=== PATIENT | female | born 1945 | race Caucasian/White ===

== ENCOUNTER 2016-09-17 15:39 | Emergency (ER) | payer MEDICARE, OTHER ==
--- NOTE | 2016-09-17 16:06 | ERPHSYRPT ---
- History of Present Illness Time Seen by Provider: 09/17/16 15:54 Historian: patient Exam Limitations: no limitations Patient Subjective Stated Complaint: mid abd pain for 1 week Triage Nursing Assessment: states has had a 'bulge' to her mid abd for one week. pain with palpation. states she has been moving wood for days and leaved against the cabinet and caused more pain to abd. normal bm yesterday. bs present. poor appetite lately Physician History: C/O abdominal pain, intermittent for past 1 month. Noticed increased pain past 2 days, upper middle right bulge to area. States pain is dull, which became more sever with bumping into sink. States nauseated and vomited 3 days ago. No fever, chills, urinary or diarrhea symptoms. No chest pain, SOB, dizziness, weakness or palpitations. Had large umbilical hernia that required surgery to repair. Timing/Duration: week(s) (4), intermittent Activities at Onset: other (Increase lifting/straining working on house) Abdominal Pain Onset Location: periumbilical Pain Radiation: no radiation Severity of Pain-Max: moderate Modifying Factors: Improves With: eating (worsen) Associated Symptoms: loss of appetite, nausea, vomiting, weakness, No back, No chest pain, No fatigue, No neck pain, No shortness of breath, No syncope Previous symptoms: same symptoms as today Allergies/Adverse Reactions: cephalexin [From Keflex] Allergy (Verified 09/17/16 15:56) levofloxacin [From Levaquin] Allergy (Verified 09/17/16 15:56) prednisone Allergy (Verified 09/17/16 15:56) Home Medications: Amlodipine Besylate 10 mg [Norvasc 10 MG] 10 mg PO DAILY 09/17/16 [History] Aspirin 81 mg PO DAILY 09/17/16 [History] Benzonatate 200 mg PO BID 09/17/16 [History] Cyclobenzaprine HCl 5 mg PO DAILY 09/17/16 [History] Diclofenac Sodium 75 mg PO BID 09/17/16 [History] HydrALAzine HCL 25 MG TAB [Apresoline 25 MG TABLET] 25 mg PO BID 09/17/16 [History] Levothyroxine Sodium [Synthroid] 125 mcg PO DAILY 09/17/16 [History] Lisinopril/Hydrochlorothiazide [Lisinopril-Hctz 20-12.5 mg Tab] 1 each PO DAILY 09/17/16 [History] Metoprolol Tartrate 25 mg [Lopressor 25MG Tab] 25 mg PO DAILY 09/17/16 [ History] Omeprazole 20 MG [Prilosec 20 mg] 20 mg PO TID 09/17/16 [History] Simvastatin 40 mg [Zocor 40 mg] 40 mg PO DAILY 09/17/16 [History] Hx Tetanus, Diphtheria Vaccination/Date Given: Yes Hx Influenza Vaccination/Date Given: No Hx Pneumococcal Vaccination/Date Given: No Immunizations Up to Date: Yes - Review of Systems Constitutional: No Fever, No Chills Eyes: No Symptoms Ears, Nose, & Throat: No Symptoms Respiratory: No Cough, No Dyspnea Cardiac: No Chest Pain, No Edema, No Syncope Abdominal/Gastrointestinal: Abdominal Pain, Nausea, Vomiting, No Diarrhea, No Constipation, No Hematemesis, No Melena Genitourinary Symptoms: No Symptoms, No Dysuria Musculoskeletal: No Symptoms, No Back Pain, No Neck Pain Skin: No Rash Neurological: No Dizziness, No Focal Weakness, No Sensory Changes Psychological: No Symptoms Endocrine: No Symptoms All Other Systems: Reviewed and Negative - Past Medical History Pertinent Past Medical History: Yes Cardiac History: High Cholesterol, Hypertension Endocrine Medical History: Hypothyroidism Musculoskeletal History: Osteoporosis GI Medical History: GERD - Past Surgical History Past Surgical History: Yes Gastrointestinal: Appendectomy, Cholecystectomy Musculoskeletal: Orthopedic Surgery Female Surgical History: Hysterectomy - Social History Smoking Status: Current every day smoker Exposure to second hand smoke: Yes Drug Use: none Patient Lives Alone: No - Nursing Vital Signs Nursing Vital Signs: Initial Vital Signs Temperature 97.7 F Temperature Source Oral Pulse Rate 134 Respiratory Rate 20 Blood Pressure 122/87 Pain Intensity 5 - Physical Exam General Appearance: no apparent distress, alert Eye Exam: PERRL/EOMI, eyes nml inspection Ears, Nose, Throat Exam: normal ENT inspection, pharynx normal, moist mucous membranes Neck Exam: normal inspection, non-tender, supple, full range of motion Respiratory Exam: normal breath sounds, lungs clear, No respiratory distress Cardiovascular Exam: regular rate/rhythm, normal heart sounds Gastrointestinal/Abdomen Exam: soft, tenderness (R upper medial area), mass (R upper medial area), hernia, No distention, No guarding, No pulsatile mass, No rebound, No hepatomegaly, No organomegaly, No splenomegaly Back Exam: normal inspection, normal range of motion, No CVA tenderness, No vertebral tenderness Extremity Exam: normal inspection, normal range of motion, pelvis stable Neurologic Exam: alert, oriented x 3, cooperative, normal mood/affect, nml cerebellar function, sensation nml, No motor deficits Skin Exam: normal color, warm, dry SpO2 Interpretation: normal SpO2: 96 Oxygen Delivery: Room Air - Course Nursing assessment & vital signs reviewed: Yes EKG Interpreted by Me: RATE (153), A-fib, Left [place] Deviation, Non-specific ST Changes Rhythm Strip: Rate (120's but varies), Atrial Fibrillation Ordered Tests: Active Orders 24 hr Category Date Time Status Loss Prevention Detective STAT Care 09/17/16 17:29 Active EKG-ER Only STAT Care 09/17/16 16:15 Active IV Insertion STAT Care 09/17/16 16:15 Active NPO (ED) STAT Care 09/17/16 16:15 Active ABDOMEN AND PELVIS W CONTRAST [CT] Stat Exams 09/17/16 16:18 Taken AMYLASE Stat Lab 09/17/16 16:30 Completed CBC W DIFF Stat Lab 09/17/16 16:30 Completed CMP Stat Lab 09/17/16 16:30 Completed LIPASE Stat Lab 09/17/16 16:30 Completed T4 Stat Lab 09/17/16 16:35 Completed TROPONIN Stat Lab 09/17/16 16:35 Completed TSH, 3RD Generation Stat Lab 09/17/16 16:35 Completed UA W/ MICROSCOPIC Stat Lab 09/17/16 16:30 Completed Medication Summary Generic Name Dose Route Start Last Admin Trade Name Freq PRN Reason Stop Dose Admin Sodium Chloride 700 mls @ 100 mls/hr 09/17/16 17:00 09/17/16 17:04 Sodium Chloride 0.9% 1000 Ml IV 10/17/16 16:59 100 mls/hr .Q7H ELGIN Administration Diltiazem HCl 100 mls @ 5 mls/hr 09/17/16 19:00 09/17/16 18:54 Cardizem Drip 100 Mg/100 Ml D5w IV 10/17/16 18:59 5 mls/hr .Q20H ELGIN Administration Protocol 5 MG/HR Discontinued Medications Generic Name Dose Route Start Last Admin Trade Name Freq PRN Reason Stop Dose Admin Sodium Chloride 300 mls @ 999 mls/hr 09/17/16 16:57 09/17/16 17:04 Sodium Chloride 0.9% 1000 Ml IV 09/17/16 17:15 999 mls/hr .Q19M STA Administration Sodium Chloride Confirm 09/17/16 17:03 Sodium Chloride 0.9% 1000 Ml Administered 09/17/16 17:04 Dose 1,000 mls @ ud .ROUTE .STK-MED ONE Diltiazem HCl Confirm 09/17/16 18:52 Cardizem Drip 100 Mg/100 Ml D5w Administered 09/17/16 18:53 Dose 100 mls @ ud IV .STK-MED ONE Metoprolol Tartrate 5 mg 09/17/16 17:58 09/17/16 18:02 Lopressor 5 Mg/5 Ml Injection IV 09/17/16 17:59 5 mg STAT ONE Administration Metoprolol Tartrate Confirm 09/17/16 17:59 Lopressor 5 Mg/5 Ml Injection Administered 09/17/16 18:00 Dose 5 mg IV .STK-MED ONE Ondansetron HCl 4 mg 09/17/16 16:15 09/17/16 16:30 Zofran 4 Mg/2 Ml Vial IV 09/17/16 16:16 4 mg STAT ONE Administration Ondansetron HCl Confirm 09/17/16 16:30 Zofran 4 Mg/2 Ml Vial Administered 09/17/16 16:31 Dose 4 mg .ROUTE .STK-MED ONE Lab/Rad Data: Laboratory Result Diagrams 09/17/16 16:30 09/17/16 16:30 Laboratory Results 09/17/16 09/17/16 09/17/16 Range/Units 16:35 16:35 16:30 WBC (4.0-10.5) K/mm3 RBC (4.1-5.4) M/mm3 Hgb (12.0-16.0) gm/dl Hct (35-47) % MCV (78-100) fl MCH (26-32) pg MCHC (32-36) g/dl RDW (11.5-14.0) % Plt Count (150-450) K/mm3 MPV (6-9.5) fl Gran % (36.0-66.0) % Lymphocytes % (24.0-44.0) % Monocytes % (0.0-12.0) % Eosinophils % (0.00-5.0) % Basophils % (0.0-0.4) % Basophils # (0-0.4) Sodium (136-145) mEq/L Potassium (3.5-5.1) mEq/L Chloride (98-107) mEq/L Carbon Dioxide (21-32) mEq/L Anion Gap (5-15) MEQ/L BUN (9-20) mg/dL Creatinine (0.55-1.30) mg/dl Estimated GFR ML/MIN Glucose (70-110) MG/DL Calcium (8.5-10.1) mg/dL Total Bilirubin (0.2-1.0) mg/dL AST (15-37) U/L ALT (12-78) U/L Alkaline Phosphatase (46-116) U/L Troponin I < 0.017 (0.000-0.056) ng/ml Serum Total Protein (6.4-8.2) gm/dL Albumin (3.4-5.0) g/dL Amylase (25-115) U/L Lipase (73-393) U/L Thyroxine (T4) 8.9 (4.7-13.3) UG/DL TSH 3rd Generation 3.377 (0.358-3.740) mIU/L Ur Collection Type CLEAN CATCH Urine Color YELLOW (YELLOW) Urine Appearance SLIGHTLY CLOUDY (CLEAR) Urine pH 5.5 (5-6) Ur Specific [place] 1.025 (1.005-1.025) Urine Protein 100 (Negative) Urine Glucose (UA) NEGATIVE (NEGATIVE) mg/dL Urine Ketones NEGATIVE (NEGATIVE) Urine Nitrite NEGATIVE (NEGATIVE) Urine Bilirubin SMALL (NEGATIVE) Urine Urobilinogen 0.2 (0-1) mg/dL Urine WBC (Auto) NEGATIVE (NEGATIVE) Urine RBC (Auto) TRACE-INTACT (0-5) Demian/ul Urine Microscopic RBC 2-5 (0-2) /HPF Urine Microscopic WBC 2-5 (0-5) /HPF Ur Epithelial Cells MODERATE (FEW) /HPF Urine Bacteria MODERATE (NEGATIVE) /HPF Hyaline Casts 0-2 (0-2) /LPF Urine Mucus SLIGHT (NEGATIVE) /HPF Specimen Received 09/17/16 9675 09/17/16 09/17/16 Range/Units 16:30 16:30 WBC 6.2 (4.0-10.5) K/mm3 RBC 3.70 L (4.1-5.4) M/mm3 Hgb 11.5 L (12.0-16.0) gm/dl Hct 35.3 (35-47) % MCV 95.4 (78-100) fl MCH 31.0 (26-32) pg MCHC 32.6 (32-36) g/dl RDW 14.9 H (11.5-14.0) % Plt Count 212 (150-450) K/mm3 MPV 11.8 H (6-9.5) fl Gran % 61.5 (36.0-66.0) % Lymphocytes % 29.3 (24.0-44.0) % Monocytes % 7.6 (0.0-12.0) % Eosinophils % 1.1 (0.00-5.0) % Basophils % 0.5 (0.0-0.4) % Basophils # 0.03 (0-0.4) Sodium 142 (136-145) mEq/L Potassium 3.5 (3.5-5.1) mEq/L Chloride 104 (98-107) mEq/L Carbon Dioxide 27.0 (21-32) mEq/L Anion Gap 14.1 (5-15) MEQ/L BUN 19 (9-20) mg/dL Creatinine 0.94 (0.55-1.30) mg/dl Estimated GFR > 60 ML/MIN Glucose 100 (70-110) MG/DL Calcium 8.1 L (8.5-10.1) mg/dL Total Bilirubin 1.1 H (0.2-1.0) mg/dL AST 42 H (15-37) U/L ALT 106 H (12-78) U/L Alkaline Phosphatase 134 H (46-116) U/L Troponin I (0.000-0.056) ng/ml Serum Total Protein 6.6 (6.4-8.2) gm/dL Albumin 3.3 L (3.4-5.0) g/dL Amylase 45 (25-115) U/L Lipase 203 (73-393) U/L Thyroxine (T4) (4.7-13.3) UG/DL TSH 3rd Generation (0.358-3.740) mIU/L Ur Collection Type Urine Color (YELLOW) Urine Appearance (CLEAR) Urine pH (5-6) Ur Specific [place] (1.005-1.025) Urine Protein (Negative) Urine Glucose (UA) (NEGATIVE) mg/dL Urine Ketones (NEGATIVE) Urine Nitrite (NEGATIVE) Urine Bilirubin (NEGATIVE) Urine Urobilinogen (0-1) mg/dL Urine WBC (Auto) (NEGATIVE) Urine RBC (Auto) (0-5) Demian/ul Urine Microscopic RBC (0-2) /HPF Urine Microscopic WBC (0-5) /HPF Ur Epithelial Cells (FEW) /HPF Urine Bacteria (NEGATIVE) /HPF Hyaline Casts (0-2) /LPF Urine Mucus (NEGATIVE) /HPF Specimen Received - Progress Progress: improved Progress Note: 09/17/16 18:43 patient was given metoprolol for A. fib. This did seem to improve her rat as it was decrease to 100s to 130s, along with improvement of her blood pressure. Repeat EKG showed atrial fib and a heart rate of 120, there is left axis deviation and nonspecific ST-T wave changes. Dr. Andersen, her relay mechanic,was notified and agrees with admission. We'll start Cardizem drip 5 mg/hour and increased to 10 mg/hr as tolerated. We'll also start Lovenox 1 mg/kg if patient does not have incarcerated hernia. Dr. Venegas, her primary care doctor, was also notified in law also aid in her care at [facility]. Her surgeon is also located at [facility] in [place]. Venegas will direct her care with her surgeon. 09/17/16 18:53 09/17/16 19:16 patient was notified to Dr. Sahu, who is the oncoming ED physician. Care was discussed in regards to results of abdominal CT. If patient has incarcerated hernia, we will hold off on anticoagulatio. If patient does not have an incarcerated hernia, we'll give patient Lovenox 1 mg/kg subcutaneous. Dr. Sahu understanding plan and will assume care of patient Counseled pt/family regarding: lab results, diagnosis, rad results - Departure Time of Disposition: 18:48 Departure Disposition: Transfer ([facility]) Clinical Impression: New onset atrial fibrillation, Abdominal pain Condition: Stable Critical Care Time: No Referrals: GABBY VENEGAS [Primary Care Provider] -
[2016-09-17] MEDS ORDERED: Zofran 4 MG/2 ML VIAL IV ONE (16:15)
[2016-09-17] MEDS ORDERED: Zofran 4 MG/2 ML VIAL ONE (16:30)
[2016-09-17 16:51] LABS: BASOPHIL % 0.5 % (0.0-0.4); Eosinophil % 1.1 % (0.00-5.0); Granulocytes % 61.5 % (36.0-66.0); Lymphocytes % 29.3 % (24.0-44.0); Mean Cell Volume 95.4 fl (78-100); Mean Platelet Volume 11.8 fl (6-9.5); Monocytes % 7.6 % (0.0-12.0); Platelet Count 212 K/mm3 (150-450); Red Cell Distribution Width 14.9 % (11.5-14.0); White Blood Count 6.2 K/mm3 (4.0-10.5)
[2016-09-17] MEDS ORDERED: SODIUM CHLORIDE 0.9% IV STA (16:57)
[2016-09-17 16:59] LABS: ALBUMIN 3.3 g/dL (3.4-5.0); ALKALINE PHOSPHATASE 134 U/L (46-116); ANION GAP 14.1 MEQ/L (5-15); BILIRUBIN,TOTAL 1.1 mg/dL (0.2-1.0); BLOOD UREA NITROGEN 19 mg/dL (9-20); CHLORIDE 104 mEq/L (98-107); Glucose 100 MG/DL (70-110); LIPASE 203 U/L (73-393); Potassium 3.5 mEq/L (3.5-5.1); SGOT/AST 42 U/L (15-37); SGPT/ALT 106 U/L (12-78); SODIUM 142 mEq/L (136-145); Total Protein 6.6 gm/dL (6.4-8.2)
[2016-09-17] MEDS ORDERED: Sodium Chloride 0.9% 1000 ML 1,000 ML ONE (17:03)
[2016-09-17 17:20] LABS: Collection Type CLEAN CATCH
[2016-09-17 17:21] LABS: Bacteria MODERATE /HPF (NEGATIVE); COMPLETE URINE MICROSCOPIC? YES; Epithelial Cells MODERATE /HPF (FEW); Hyaline Casts 0-2 /LPF (0-2); Mucus SLIGHT /HPF (NEGATIVE); Ph 5.5 (5-6)
[2016-09-17] MEDS ORDERED: LOPRESSOR 5 MG/5 ML INJECTION IV ONE ×2 (17:58→17:59)
[2016-09-17] MEDS ORDERED: CARDIZEM DRIP 100 MG/100 ML D5W 100 ML IV ONE (18:52)
[2016-09-17] MEDS ORDERED: CARDIZEM DRIP 100 MG/100 ML D5W 100 ML IV SCH (19:00)
[2016-09-17] MEDS ORDERED: ENOXAPARIN SODIUM SQ ONE ×2 (19:45→20:03)
[2016-09-17 20:59] VITALS: PULSE 116; O2SAT 97
[2016-09-17 21:08] VITALS: BP 116/70
--- NOTE | 2016-09-18 09:14 | XRAY ---
Indication: Abdominal pain. Possible incarcerated hernia. Multiple contiguous axial images obtained through the abdomen and pelvis using 80 cc Isovue 370 contrast and enteric contrast. Comparison: None Lung bases demonstrates bibasilar fibrosis/scarring and small right base effusion. The heart is enlarged. Small hiatal hernia. Previous midline ventral hernia repair surgery. Tiny fatty right epigastric ventral hernia. No other ventral or inguinal hernias. Contrasted stomach and bowel loops appear nonobstructed. Normal appendix. Tiny nonspecific pelvic free fluid. No walled off fluid collection or free air. Bilateral renal cysts, largest left kidney measuring 2.6 cm. Previous cholecystectomy and hysterectomy. Remaining liver, pancreas, spleen, adrenal glands, kidneys, ureters, and urinary bladder appear unremarkable. Mild aortoiliac calcifications. No AAA or pathologic retroperitoneal lymphadenopathy. Osseous structures intact with moderate degenerative changes throughout the spine and previous L4-L5 fusion surgery with bilateral posterior spinal hardware producing beam artifact. Impression: 1. Tiny right epigastric fatty ventral hernia. 2. Tiny nonspecific pelvic free fluid. 3. Bilateral renal cysts. 4. Nonspecific small right lung base effusion, cardiomegaly, and small hiatal hernia. Comment: Preliminary interpretation was made by C. No discrepancy. CTDI is 23.67
[2016-09-18 20:41] LABS: T3, FREE 2.32 pg/mL (2.00-4.00)
== END 2016-09-17 21:16 | disposition short-term general hospital (02) ==
LOC: ED 15:39
DX: I48.91 Unspecified atrial fibrillation (principal); R10.11 Right upper quadrant pain; R11.2 Nausea with vomiting, unspecified; I10 Essential (primary) hypertension; E78.00 Pure hypercholesterolemia, unspecified; E03.9 Hypothyroidism, unspecified; Z79.899 Other long term (current) drug therapy
CPT/HCPCS: 36000; 36415; 74177; 80053; 81000; 82150; 83605; 83690; 84436; 84443; 84480; 84481; 84484; 85025; 93005; 93041; 96360; 96361; 96365; 96366; 96374; 99284; J1650; J2405

== ENCOUNTER 2016-12-21 14:50 | Emergency (ER) | payer MEDICARE, OTHER ==
[2016-12-21] MEDS ORDERED: Cardizem IV 50 MG/10 ML IV ONE ×2 (15:19→15:24)
[2016-12-21] MEDS ORDERED: CARDIZEM DRIP 100 MG/100 ML D5W 100 ML IV PRN (15:21)
[2016-12-21] MEDS ORDERED: CARDIZEM DRIP 100 MG/100 ML D5W 100 ML IV ONE (15:24)
[2016-12-21] MEDS ORDERED: Sodium Chloride 0.9% 1000 ML 1,000 ML ONE (15:25)
[2016-12-21] MEDS ORDERED: Sodium Chloride 0.9% 1000 ML 1,000 ML IV SCH (15:30)
--- NOTE | 2016-12-21 15:30 | ERPHSYRPT ---
- History of Present Illness Time Seen by Provider: 12/21/16 15:13 Source: patient Exam Limitations: clinical condition Patient Subjective Stated Complaint: PT COMPLAINS OF SOB STATES BECAME WORSE X 4 DAYS AGO STAETS THAT SHE WAS RECENLTY DIAGNOSED X 1 MONTH AGO WITH AFIB STATES THAT DR MILLIE STARTED HER ON CARDIZEM ON November STATES THAT SINCE SHE STARTED IT SHE HAS BEEN INCREASINGLY MORE SOB AND AND DIZZY,NAUSEATED AND NOT FEELING WELL SO STATES SHE STOPPED IT X 4 DAYS AGO STATES THAT WHEN HER SOB BECAME WORSE PT STAES THAT SHE HASN'T TALKED TO MILLIE TO LET HIM KNOW THAT SHE STOPPED THE MEDS. Triage Nursing Assessment: PT ALERT WARM AND DRY LABORED BREATHING NOTED WITH ANY EXACERBATION RESP 34 TIMES A MIN HR 160 ON THE MONITOR EKG DONE AT BEDSIDE. Physician History: PATIENT WITH A HISTORY OR HYPERTENSION, RECENTLY DIAGNOSED WITH ATRIAL FIBRILLATION 3 WEEKS AGO, PLACED ONTO LOPRESSOR AND CARDIZEM. PATIENT COMPLAINS OF DYSPNEA 4 DAYS AGO AT WHICH TIME SHE STOPPED TAKING HER CARDIZEM DUE TO SHORTNESS OF BREATH AND TAPERED HER DOSE OF LOPRESSOR FROM 3 TIMES DAILY TO TWICE DAILY. DENIES DIAPHORESIS OR CHEST PAIN. Timing/Duration: day(s) Activities at Onset: rest Severity of Dyspnea-Max: moderate Severity of Dyspnea-Current: moderate Possible Cause: no prior episodes Modifying Factors: Improves With: exertion, rest Associated Symptoms: edema (IN LEGS) Allergies/Adverse Reactions: cephalexin [From Keflex] Allergy (Verified 09/17/16 15:56) levofloxacin [From Levaquin] Allergy (Verified 09/17/16 15:56) prednisone Allergy (Verified 09/17/16 15:56) Home Medications: Amlodipine Besylate 10 mg [Norvasc 10 MG] 10 mg PO DAILY 09/17/16 [History] Aspirin 81 mg PO DAILY 09/17/16 [History] Benzonatate 200 mg PO BID 09/17/16 [History] Cyclobenzaprine HCl 5 mg PO DAILY 09/17/16 [History] Diclofenac Sodium 75 mg PO BID 09/17/16 [History] HydrALAzine HCL 25 MG TAB [Apresoline 25 MG TABLET] 25 mg PO BID 09/17/16 [History] Levothyroxine Sodium [Synthroid] 125 mcg PO DAILY 09/17/16 [History] Lisinopril/Hydrochlorothiazide [Lisinopril-Hctz 20-12.5 mg Tab] 1 each PO DAILY 09/17/16 [History] Metoprolol Tartrate 25 mg [Lopressor 25MG Tab] 25 mg PO DAILY 09/17/16 [ History] Omeprazole 20 MG [Prilosec 20 mg] 20 mg PO TID 09/17/16 [History] Simvastatin 40 mg [Zocor 40 mg] 40 mg PO DAILY 09/17/16 [History] Hx Tetanus, Diphtheria Vaccination/Date Given: Yes Hx Influenza Vaccination/Date Given: Yes Hx Pneumococcal Vaccination/Date Given: No Immunizations Up to Date: Yes - Review of Systems Constitutional: No Fever, No Chills Eyes: No Symptoms Ears, Nose, & Throat: No Symptoms Respiratory: Dyspnea, Dyspnea on Exertion (GARCIA), No Cough Cardiac: No Symptoms, Edema, No Chest Pain, No Syncope Abdominal/Gastrointestinal: No Symptoms, No Abdominal Pain, No Nausea, No Vomiting, No Diarrhea Genitourinary Symptoms: No Symptoms, No Dysuria Musculoskeletal: No Symptoms, No Back Pain, No Neck Pain Skin: No Symptoms, No Rash Neurological: No Symptoms, No Dizziness, No Focal Weakness, No Sensory Changes Psychological: No Symptoms Endocrine: No Symptoms All Other Systems: Reviewed and Negative - Past Medical History Pertinent Past Medical History: Yes Cardiac History: High Cholesterol, Hypertension Endocrine Medical History: Hypothyroidism Musculoskeletal History: Osteoporosis GI Medical History: GERD - Past Surgical History Past Surgical History: Yes Gastrointestinal: Appendectomy, Cholecystectomy Musculoskeletal: Orthopedic Surgery Female Surgical History: Hysterectomy - Social History Smoking Status: Never smoker Exposure to second hand smoke: No Drug Use: none Patient Lives Alone: No - Female History Hx Last Menstrual Period: N/A - Nursing Vital Signs Nursing Vital Signs: Initial Vital Signs Temperature 98.4 F Temperature Source Oral Pulse Rate 132 Respiratory Rate 26 Blood Pressure [] 126/86 - Physical Exam General Appearance: mild distress Eye Exam: PERRL/EOMI Neck Exam: normal inspection, supple, JVD Respiratory Exam: diminished breath sounds Cardiovascular/Chest Exam: tachycardia, irregular Abdominal/Gastrointestinal Exam: soft, normal bowel sounds, other, No tenderness , No distention, No mass Extremity Exam: non-tender, normal range of motion, normal inspection, no calf tenderness, no pedal edema Peripheral Pulses Exam: carotid (R): 2+, carotid (L): 2+, femoral (R): 2+, femoral (L): 2+, dorsalis-pedis (R): 2+, dorsalis-pedis (L): 2+ Neurologic Exam: alert, oriented x 3, cooperative, supply clerk II-XII nml as tested, sensation nml, No motor deficits Skin Exam: normal color, warm, No dry SpO2 Interpretation: normal SpO2: 97 Oxygen Delivery: Nasal Cannula - Course EKG Interpreted by Me: RATE, A-fib, NORMAL AXIS - Radiology Exams Chest X-ray Interpretation: Discussed w/ radiologist (MILD TO MODERATE CARDIOMEGALY WITH MILD BILATERAL VASCULAR CONGSTION) Ordered Tests: Active Orders 24 hr Category Date Time Status Exercise Rider STAT Care 12/21/16 15:17 Active EKG-ER Only STAT Care 12/21/16 15:17 Active IV Insertion STAT Care 12/21/16 15:17 Active Oxygen-ED Only NASAL CANNULA 2 lpm Care 12/21/16 15:17 Active Pulse Oximetry (ED) STAT Care 12/21/16 15:17 Active CHEST 1 VIEW (PORTABLE) Stat Exams 12/21/16 15:17 Completed CBC W DIFF Stat Lab 12/21/16 15:39 Completed CMP Stat Lab 12/21/16 15:39 Completed MAGNESIUM Stat Lab 12/21/16 15:39 Completed NT PRO BNP Stat Lab 12/21/16 15:39 Completed PROTIME WITH INR Stat Lab 12/21/16 15:39 Completed TROPONIN Q3H Lab 12/21/16 15:39 Completed Medication Summary Discontinued Medications Generic Name Dose Route Start Last Admin Trade Name Freq PRN Reason Stop Dose Admin Diltiazem HCl 20 mg 12/21/16 15:19 12/21/16 15:31 Cardizem Iv 50 Mg/10 Ml IV 12/21/16 15:20 20 mg STAT ONE Administration Diltiazem HCl Confirm 12/21/16 15:24 Cardizem Iv 50 Mg/10 Ml Administered 12/21/16 15:25 Dose 50 mg IV .STK-MED ONE Furosemide 40 mg 12/21/16 16:33 12/21/16 16:45 Lasix 40 Mg/4 Ml IV 12/21/16 16:34 40 mg STAT ONE Administration Furosemide Confirm 12/21/16 16:41 Lasix 40 Mg/4 Ml Administered 12/21/16 16:42 Dose 40 mg .ROUTE .STK-MED ONE Furosemide Confirm 12/21/16 16:45 Lasix 40 Mg/4 Ml Administered 12/21/16 16:46 Dose 40 mg .ROUTE .STK-MED ONE Sodium Chloride 1,000 mls @ 20 mls/hr 12/21/16 15:30 12/21/16 15:29 Sodium Chloride 0.9% 1000 Ml IV 01/20/17 15:29 20 mls/hr .Q24H ELGIN Administration Diltiazem HCl 100 mls @ 10 mls/hr 12/21/16 15:21 12/21/16 15:32 Cardizem Drip 100 Mg/100 Ml D5w IV 01/20/17 15:20 10 mg/hr .Q10H PRN 10 mls/hr HEART RATE/ A-FIB Administration Protocol 10 MG/HR Sodium Chloride Confirm 12/21/16 15:25 Sodium Chloride 0.9% 1000 Ml Administered 12/21/16 15:26 Dose 1,000 mls @ ud .ROUTE .STK-MED ONE Diltiazem HCl Confirm 12/21/16 15:24 Cardizem Drip 100 Mg/100 Ml D5w Administered 12/21/16 15:25 Dose 100 mls @ ud IV .STK-MED ONE Potassium Chloride 40 meq 12/21/16 16:52 12/21/16 17:14 Klor Con 10 Meq PO 12/21/16 16:53 40 meq STAT ONE Administration Potassium Chloride Confirm 12/21/16 17:02 Klor Con 10 Meq Administered 12/21/16 17:03 Dose 40 meq PO .STK-MED ONE Lab/Rad Data: Laboratory Result Diagrams 12/21/16 15:39 12/21/16 15:39 Laboratory Results 12/21/16 12/21/16 12/21/16 Range/Units 15:39 15:39 15:39 WBC (4.0-10.5) K/mm3 RBC (4.1-5.4) M/mm3 Hgb (12.0-16.0) gm/dl Hct (35-47) % MCV (78-100) fl MCH (26-32) pg MCHC (32-36) g/dl RDW (11.5-14.0) % Plt Count (150-450) K/mm3 MPV (6-9.5) fl Gran % (36.0-66.0) % Lymphocytes % (24.0-44.0) % Monocytes % (0.0-12.0) % Eosinophils % (0.00-5.0) % Basophils % (0.0-0.4) % Basophils # (0-0.4) INR 3.62 H (0.8-3.0) Sodium (136-145) mEq/L Potassium (3.5-5.1) mEq/L Chloride (98-107) mEq/L Carbon Dioxide (21-32) mEq/L Anion Gap (5-15) MEQ/L BUN (9-20) mg/dL Creatinine (0.55-1.30) mg/dl Estimated GFR ML/MIN Glucose (70-110) MG/DL Calcium (8.5-10.1) mg/dL Magnesium 1.8 (1.8-2.4) mg/dL Total Bilirubin (0.2-1.0) mg/dL AST (15-37) U/L ALT (12-78) U/L Alkaline Phosphatase (46-116) U/L Troponin I 1.021 H* (0.000-0.056) ng/ml NT-Pro-B Natriuret Pep (0-125) pg/ml Serum Total Protein (6.4-8.2) gm/dL Albumin (3.4-5.0) g/dL 12/21/16 12/21/16 Range/Units 15:39 15:39 WBC 6.6 (4.0-10.5) K/mm3 RBC 3.93 L (4.1-5.4) M/mm3 Hgb 11.0 L (12.0-16.0) gm/dl Hct 34.8 L (35-47) % MCV 88.5 (78-100) fl MCH 27.9 (26-32) pg MCHC 31.6 L (32-36) g/dl RDW 15.4 H (11.5-14.0) % Plt Count 255 (150-450) K/mm3 MPV 12.2 H (6-9.5) fl Gran % 67.3 H (36.0-66.0) % Lymphocytes % 24.2 (24.0-44.0) % Monocytes % 6.8 (0.0-12.0) % Eosinophils % 0.9 (0.00-5.0) % Basophils % 0.8 (0.0-0.4) % Basophils # 0.05 (0-0.4) INR (0.8-3.0) Sodium 136 (136-145) mEq/L Potassium 3.1 L (3.5-5.1) mEq/L Chloride 101 (98-107) mEq/L Carbon Dioxide 25.4 (21-32) mEq/L Anion Gap 12.8 (5-15) MEQ/L BUN 24 H (9-20) mg/dL Creatinine 1.45 H (0.55-1.30) mg/dl Estimated GFR 38 ML/MIN Glucose 155 H (70-110) MG/DL Calcium 8.4 L (8.5-10.1) mg/dL Magnesium (1.8-2.4) mg/dL Total Bilirubin 2.6 H (0.2-1.0) mg/dL AST 56 H (15-37) U/L ALT 67 (12-78) U/L Alkaline Phosphatase 128 H (46-116) U/L Troponin I (0.000-0.056) ng/ml NT-Pro-B Natriuret Pep 17331 H (0-125) pg/ml Serum Total Protein 7.1 (6.4-8.2) gm/dL Albumin 3.2 L (3.4-5.0) g/dL - Progress Progress: improved Progress Note: 12/21/16 15:30 PATIENT GIVEN CARDIZEM BOLUS 20MG FOLLOWED CARDIZEM INFUSION 10MG/HR, RAPID ATRIAL FIB RATE 140'S IMPROVED TO 80'S IV LASIX 40MG GIVEN FOR CONGESTIVE FAILURE 12/21/16 16:[address] Pinto (DISCUSSED WITH DR PINTO AT 1730 ACCEPTS TRANSFER TO [facility]IA [facility]) - Departure Time of Disposition: 17:45 Departure Disposition: Transfer Clinical Impression: RECURRENT ATRIAL FIBRILLATION, ACUTE CONGESTIVE HEART FAILURE, MEDICATION NONCOMPLIANCE Condition: Stable Critical Care Time: No Referrals: GABBY VENEGAS [Primary Care Provider] -
[2016-12-21 15:49] LABS: BASOPHIL % 0.8 % (0.0-0.4); Eosinophil % 0.9 % (0.00-5.0); Granulocytes % 67.3 % (36.0-66.0); Lymphocytes % 24.2 % (24.0-44.0); Mean Cell Volume 88.5 fl (78-100); Mean Corpuscular Hemoglobin 27.9 pg (26-32); Mean Platelet Volume 12.2 fl (6-9.5); Monocytes % 6.8 % (0.0-12.0); Platelet Count 255 K/mm3 (150-450); Red Blood Count 3.93 M/mm3 (4.1-5.4); Red Cell Distribution Width 15.4 % (11.5-14.0); White Blood Count 6.6 K/mm3 (4.0-10.5)
[2016-12-21 16:05] LABS: INR 3.62 (0.8-3.0); PROTIME 39.1 SECONDS (9.95-12.35)
[2016-12-21 16:21] LABS: ALBUMIN 3.2 g/dL (3.4-5.0); ANION GAP 12.8 MEQ/L (5-15); BILIRUBIN,TOTAL 2.6 mg/dL (0.2-1.0); Carbon Dioxide 25.4 mEq/L (21-32); Potassium 3.1 mEq/L (3.5-5.1); Total Protein 7.1 gm/dL (6.4-8.2)
[2016-12-21] MEDS ORDERED: Lasix 40 MG/4 ML IV ONE (16:33)
--- NOTE | 2016-12-21 16:35 | XRAY ---
Exam: AP portable chest film from 1545 hrs. on 12/21/2016. Comparison: None. Indication: Dyspnea. Findings: There is mild to moderate cardiomegaly. The level of inspiration is not deep. I believe there is some mild bilateral vascular congestive changes. Minimal plate atelectasis is seen within the lateral right midlung field. There is a small oblique strand of discoid atelectasis within the lateral left lower lung field. No dense lung consolidations are seen. No pneumothorax is seen. The costophrenic angles are not blunted. The bones appear grossly intact. Moderate lateral osteophyte formation is seen within the mid and lower thoracic spine. Impression: 1. Mild to moderate cardiomegaly with mild bilateral vascular congestive changes. Consider early CHF or fluid volume overload. I see no pleural fluid blunting the lateral costophrenic angles at this time. 2. Minimal subsegmental atelectasis is seen within both lungs as discussed above. No dense lung consolidation is seen.
[2016-12-21] MEDS ORDERED: Lasix 40 MG/4 ML ONE ×2 (16:41→16:45)
[2016-12-21] MEDS ORDERED: Klor Con 10 MEQ PO ONE ×2 (16:52→17:02)
[2016-12-21 17:22] VITALS: BP 126/86; PULSE 132
[2016-12-21 17:42] VITALS: O2SAT 97
== END 2016-12-21 17:35 | disposition short-term general hospital (02) ==
LOC: ED 14:50
DX: I48.91 Unspecified atrial fibrillation (principal); I50.9 Heart failure, unspecified; Z91.14 Patient's other noncompliance with medication regimen; I10 Essential (primary) hypertension; Z79.899 Other long term (current) drug therapy
CPT/HCPCS: 36000; 36415; 51702; 71010; 80053; 83735; 83880; 84484; 85025; 85610; 93005; 93041; 96360; 96361; 96365; 96366; 96374; 96375; 99285; J1940; A9270-GY

== ENCOUNTER 2020-08-24 09:23 | Inpatient (IN) | payer MEDICARE, OTHER ==
[2020-08-24] MEDS ORDERED: CARDIZEM DRIP 100 MG/100 ML D5W 100 ML IV PRN (09:42)
[2020-08-24] MEDS ORDERED: Cardizem IV 50 MG/10 ML IV ONE ×2 (09:44→10:17)
--- NOTE | 2020-08-24 10:10 | XRAY ---
Indication: Syncope. Status post fall. Multiple contiguous axial images obtained through the head without contrast. Comparison: None Age-appropriate global atrophy with minimal periventricular degenerative micro-ischemia bilaterally. Left roxane demonstrates remote lacunar infarct. No acute intracranial hemorrhage, abnormal extra-axial fluid collection, or mass effect. Fourth ventricle is midline without hydrocephalus. Loco-white matter differentiation preserved. Bony calvarium intact. Visualized paranasal sinuses and mastoid air cells are clear. 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
[2020-08-24] MEDS ORDERED: CARDIZEM DRIP 100 MG/100 ML D5W 100 ML IV ONE (10:17)
[2020-08-24 10:24] LABS: Hemoglobin 9.8 gm/dl (12.0-16.0); Mean Cell Volume 90.9 fl (78-100); Mean Corpuscular Hgb Concent. 29.7 g/dl (32-36); Mean Platelet Volume 11.6 fl (7.5-11.0); Platelet Count 105 K/mm3 (150-450); Red Blood Count 3.63 M/mm3 (4.1-5.4); Red Cell Distribution Width 19.1 % (11.5-14.0)
--- NOTE | 2020-08-24 10:27 | XRAY ---
Indication: Syncope. Positive Covid 19. Comparison: November 14, 2019. Portable chest demonstrates new diffuse bilateral airspace disease without consolidation/large effusion. Heart remains enlarged. Bony thorax intact again with mild degenerative changes.
[2020-08-24 10:35] LABS: ALBUMIN 3.4 g/dL (3.5-5.0); ALKALINE PHOSPHATASE 69 U/L (38-126); ANION GAP 10.5 MEQ/L (5-15); BLOOD UREA NITROGEN 15 mg/dL (7-17); CHLORIDE 100 mmol/L (98-107); Calcium 7.7 mg/dL (8.4-10.2); Carbon Dioxide 24 mmol/L (22-30); Creatinine 1 0.92 mg/dL (0.52-1.04); EST GLOMERULAR FILTRATION RATE > 60.0 ML/MIN; Glucose 110 mg/dL (74-106); MAGNESIUM 1.8 mg/dL (1.6-2.3); Potassium 3.5 mmol/L (3.5-5.1); SGOT/AST 48 U/L (14-36); SGPT/ALT 18 U/L (0-35); SODIUM 131 mmol/L (137-145); Total Protein 6.6 g/dL (6.3-8.2)
--- NOTE | 2020-08-24 10:39 | ERPHSYRPT ---
- History of Present Illness Time Seen by Provider: 08/24/20 09:35 Source: patient Patient Subjective Stated Complaint: "Passing out and dizzy since . Tested positive for COVID on 08/17." Reports vomiting, diarrhea, body aches, fever. Triage Nursing Assessment: . Physician History: Patient is a 75-year-old female presents to our ED for evaluation as advised by her primary care doctor Dr. Venegas. Patient states she was diagnosed with Covid approximately 1 week ago. She reports feeling dizzy for approximately 4 days. Today she had a syncopal episode. Patient has been feeling weak. She admits to nausea vomiting and diarrhea. She has been experiencing body aches and subjective fevers. Symptoms have been ongoing. Patient has a history of atrial fib with RVR. Patient is anticoagulated. Patient's been taking all medications as prescribed. Symptoms are mild to moderate in intensity. No specific worsening or improving factors. Patient voices no other complaints at this time. She denies headache. No neck pain. Cervical spine cleared clinically. Patient voices no other complaints. Timing/Duration: today Severity: moderate Modifying Factors: Improves With: nothing Associated Symptoms: nausea, syncope Allergies/Adverse Reactions: cephalexin [From Keflex] Allergy (Verified 08/24/20 09:38) levofloxacin [From Levaquin] Allergy (Verified 08/24/20 09:38) prednisone Allergy (Verified 08/24/20 09:38) Home Medications: Aspirin 81 mg PO DAILY 09/17/16 [History] Levothyroxine Sodium [Synthroid] 125 mcg PO DAILY 09/17/16 [History] Metoprolol Tartrate 25 mg [Lopressor 25MG Tab] 50 mg PO BID 09/17/16 [History] Omeprazole 20 MG [Prilosec 20 mg] 20 mg PO BID 09/17/16 [History] Alendronate Sodium 70 mg [Fosamax 70 MG] 70 mg PO WEEKLY 08/24/20 [Hi story] Amlodipine Besylate 5 mg PO DAILY 08/24/20 [History] Apixaban [Eliquis 2.5 mg Tablet] 2.5 mg PO BID 08/24/20 [History] Digoxin 125 mcg PO DAILY 08/24/20 [History] Furosemide 40 mg [Lasix 40 MG] 40 mg PO DAILY 08/24/20 [History] Lisinopril 10 mg [Zestril 10 MG] 10 mg PO DAILY 08/24/20 [History] Metformin HCl 500 mg [Glucophage 500 MG] 1,000 mg PO DAILY 08/24/20 [History] Potassium Chloride 10 meq PO DAILY 08/24/20 [History] Simvastatin 20Mg [Zocor 20Mg] 20 mg PO DAILY 08/24/20 [History] Hx Tetanus, Diphtheria Vaccination/Date Given: Yes Hx Influenza Vaccination/Date Given: No Hx Pneumococcal Vaccination/Date Given: No Travel Risk - International Travel Have you traveled outside of the country in past 3 weeks: No - Coronavirus Screening Are you exhibiting any of the following symptoms?: Yes Symptoms: Fever, Shortness of Breath, Vomiting/Diarrhea, Headaches/Body Aches/Fatigue - Review of Systems Constitutional: No Symptoms, No Fever, No Chills Eyes: No Symptoms Ears, Nose, & Throat: No Symptoms Respiratory: No Symptoms, No Cough, No Dyspnea Cardiac: No Symptoms, No Chest Pain, No Edema, No Syncope Abdominal/Gastrointestinal: No Symptoms, No Abdominal Pain, No Nausea, No Vomiting, No Diarrhea Genitourinary Symptoms: No Symptoms, No Dysuria Musculoskeletal: No Symptoms, No Back Pain, No Neck Pain Skin: No Symptoms, No Rash Neurological: No Symptoms, No Dizziness, No Focal Weakness, No Sensory Changes Psychological: No Symptoms Endocrine: No Symptoms Hematologic/Lymphatic: No Symptoms Immunological/Allergic: No Symptoms All Other Systems: Reviewed and Negative - Past Medical History Pertinent Past Medical History: Yes Neurological History: No Pertinent History Cardiac History: Arrhythmia, Coronary Artery Disease, High Cholesterol, Hypertension Respiratory History: No Pertinent History Endocrine Medical History: Hypothyroidism Musculoskeletal History: Arthritis GI Medical History: GERD - Past Surgical History Past Surgical History: Yes Gastrointestinal: Appendectomy, Cholecystectomy Musculoskeletal: Orthopedic Surgery Female Surgical History: Hysterectomy Other Surgical History: colonoscopy with clamps - Social History Smoking Status: Never smoker Exposure to second hand smoke: No Drug Use: none Patient Lives Alone: No - Nursing Vital Signs Nursing Vital Signs: Initial Vital Signs Temperature 98.6 F 08/24/20 09:25 Pulse Rate 134 H 08/24/20 09:25 Respiratory Rate 30 H 08/24/20 09:25 Blood Pressure 120/78 08/24/20 09:25 O2 Sat by Pulse Oximetry 95 08/24/20 09:25 Pain Scale Pain Intensity 4 - Physical Exam General Appearance: no apparent distress, alert Eye Exam: PERRL/EOMI, eyes nml inspection Ears, Nose, Throat Exam: normal ENT inspection, TMs normal, pharynx normal, moist mucous membranes Neck Exam: normal inspection, non-tender, supple, full range of motion Respiratory Exam: normal breath sounds, lungs clear, No respiratory distress Cardiovascular Exam: normal heart sounds, normal peripheral pulses, other (Atrial fibrillation with R VR.) Gastrointestinal/Abdomen Exam: soft, normal bowel sounds, No tenderness, No mass Back Exam: normal inspection, normal range of motion, No CVA tenderness, No vertebral tenderness Extremity Exam: normal inspection, normal range of motion, pelvis stable Neurologic Exam: alert, oriented x 3, cooperative, normal mood/affect, nml cerebellar function, nml station & gait, sensation nml, No motor deficits Skin Exam: normal color, warm, dry, No rash Lymphatic Exam: No adenopathy SpO2 Interpretation: normal SpO2: 95 O2 Delivery: Room Air - Course Nursing assessment & vital signs reviewed: Yes EKG Interpreted by Me: RATE (126), A-fib, NORMAL AXIS, NORMAL INTERVALS - Radiology Exams Chest X-ray Interpretation: Teleradiologist Report (Diffuse bilateral airspace disease) - CT Exams Head CT Interpretation: Tele-radiologist Report (Nonacute senile brain with old left lacunar infarct) Ordered Tests: Active Orders 24 hr Category Date Time Status Pilot Supervisor STAT Care 08/24/20 09:33 Active EKG-ER Only STAT Care 08/24/20 09:32 Active Pulse Oximetry (ED) STAT Care 08/24/20 09:32 Active CHEST 1 VIEW (PORTABLE) Stat Exams 08/24/20 09:33 Completed HEAD WITHOUT CONTRAST [CT] Stat Exams 08/24/20 09:34 Completed CBC W DIFF Stat Lab 08/24/20 10:05 Completed CMP Stat Lab 08/24/20 10:05 Completed MAGNESIUM Stat Lab 08/24/20 10:05 Completed Manual Differential NC Stat Lab 08/24/20 10:05 Completed TROPONIN Q3H Lab 08/24/20 10:05 Received TROPONIN Q3H Lab 08/24/20 12:45 Ordered TROPONIN Q3H Lab 08/24/20 15:45 Ordered TROPONIN Q3H Lab 08/24/20 18:45 Ordered TROPONIN Q3H Lab 08/24/20 21:45 Ordered Transfer Order Routine Transfer 08/24/20 Ordered Medication Summary Generic Name Dose Route Start Last Admin Trade Name Freq PRN Reason Stop Dose Admin Diltiazem HCl 100 mls @ 5 mls/hr 08/24/20 09:42 08/24/20 10:27 Cardizem Drip 100 Mg/100 Ml D5w IV 09/23/20 09:41 5 mg/hr .Q20H PRN 5 mls/hr HEART RATE/ A-FIB Administration Protocol 5 MG/HR Sodium Chloride 1,000 mls @ 100 mls/hr 08/24/20 11:30 Sodium Chloride 0.9% 1000 Ml IV 09/23/20 11:29 .Q10H ELGIN Discontinued Medications Generic Name Dose Route Start Last Admin Trade Name Freq PRN Reason Stop Dose Admin Diltiazem HCl 15 mg 08/24/20 09:44 08/24/20 10:21 Cardizem Iv 50 Mg/10 Ml IV 08/24/20 09:45 15 mg STAT ONE Administration Diltiazem HCl Confirm 08/24/20 10:17 Cardizem Iv 50 Mg/10 Ml Administered 08/24/20 10:18 Dose 50 mg IV .[place] ONE Lab/Rad Data: Laboratory Result Diagrams 08/24/20 10:05 08/24/20 10:05 Laboratory Results 08/24/20 08/24/20 Range/Units 10:05 10:05 WBC 1.2 L* (4.0-10.5) K/mm3 RBC 3.63 L (4.1-5.4) M/mm3 Hgb 9.8 L (12.0-16.0) gm/dl Hct 33.0 L (35-47) % MCV 90.9 (78-100) fl MCH 27.0 (26-32) pg MCHC 29.7 L (32-36) g/dl RDW 19.1 H (11.5-14.0) % Plt Count 105 L (150-450) K/mm3 MPV 11.6 H (7.5-11.0) fl Sodium 131 L (137-145) mmol/L Potassium 3.5 (3.5-5.1) mmol/L Chloride 100 (98-107) mmol/L Carbon Dioxide 24 (22-30) mmol/L Anion Gap 10.5 (5-15) MEQ/L BUN 15 (7-17) mg/dL Creatinine 0.92 (0.52-1.04) mg/dL Estimated GFR > 60.0 ML/MIN Glucose 110 H (74-106) mg/dL Calcium 7.7 L (8.4-10.2) mg/dL Magnesium 1.8 (1.6-2.3) mg/dL Total Bilirubin 1.00 (0.2-1.3) mg/dL AST 48 H (14-36) U/L ALT 18 (0-35) U/L Alkaline Phosphatase 69 (38-126) U/L Serum Total Protein 6.6 (6.3-8.2) g/dL Albumin 3.4 L (3.5-5.0) g/dL - Progress Progress: improved Progress Note: 08/24/20 11:43 Patient reassessed. Patient in A. fib with RVR. Cardizem drip initiated. Heart rate in the 70s. Patient feels much better. Patient is Covid positive. In light of patient's syncope we will admit to ICU Covid. Hyponatremia observed. IV fluids administered. Patient presents with pancytopenia. Dig level ordered results pending. Case discussed with Dr. Rivera who accepts admission to observation. Patient agrees to admission to [facility] for further evaluation and treatment. Discussed with Dr.: Other (Case discussed with Dr. Patel who accepts admission to observation ICU.) Will see patient in: hospital (observation) Counseled pt/family regarding: lab results, diagnosis, rad results - Departure Departure Disposition: Observation Clinical Impression: Atrial fibrillation with RVR, Syncope, COVID-19, Hyponatremia, Hypocalcemia, Nausea vomiting and diarrhea, Leukopenia, Anemia, Thrombocytopenia, Cardiomegaly, DJD (degenerative joint disease) Condition: Stable Critical Care Time: No Referrals: GABBY VENEGAS [Primary Care Provider] -
[2020-08-24 10:59] LABS: White Blood Count 1.2 K/mm3 (4.0-10.5)
[2020-08-24] MEDS ORDERED: Sodium Chloride 0.9% 1000 ML 1,000 ML IV SCH (11:30)
[2020-08-24 13:04] LABS: A-aADO2 230; ABG POTASSIUM 3.7 (3.5-5.1); ABG SITE RIGHT RADIAL; ALLEN TEST OK? YES; ARTERIAL BLOOD GAS FIO2 50 %; ARTERIAL BLOOD GAS PCO2 28 mmHg (35-45); ARTERIAL BLOOD GAS PO2 92 mmHg (75-100); ARTERIAL BLOOD GAS pH 7.47 (7.35-7.45); HCO3- 20.4 (22-28); HGB O2 SAT 92.1 g/dF (94-100); Methhemoglobin 1.1 % (1.4-1.5); paO2 pAO1 0.29
[2020-08-24] MEDS ORDERED: Zofran 4 MG/2 ML VIAL IV PRN (16:17)
[2020-08-24] MEDS ORDERED: Ativan 1 MG PO PRN (16:18)
[2020-08-24] MEDS ORDERED: Sodium Chloride 0.9% 10 ML FLUSH Syringe IV PRN (16:30)
[2020-08-24] MEDS: Cardizem CD 120 MG PO SCH (16:50)
[2020-08-24] MEDS ORDERED: REMDESIVIR 200 MG in Sodium Chloride 0.9% 250 ML 250 ML IV ONE (17:00)
[2020-08-24] MEDS: Klor Con 10 MEQ PO SCH (17:06)
[2020-08-24] MEDS: Glucophage 500 MG PO SCH (17:06)
[2020-08-24] MEDS: Lanoxin 0.125MG TABLET PO SCH (17:07)
[2020-08-24] MEDS: Lasix 40 MG PO SCH (17:08)
[2020-08-24] MEDS: Zestril 10 MG PO SCH (17:09)
[2020-08-24] MEDS: SYNTHROID 125 MCG PO SCH (17:09)
[2020-08-24] MEDS: Zocor 10MG PO SCH (17:10)
[2020-08-24 18:01] LABS: Eosinophil 1 % (0.00-3.0); Lymphocytes 18 % (24-44); Monocyte 8 % (0.0-12.0); Neutrophils 73 % (36.0-66.0); Total Cells Counted 100
[2020-08-24 18:02] LABS: Platelet Estimate DECREASED (NORMAL)
[2020-08-24] MEDS: Sodium Chloride 0.9% 10 ML FLUSH Syringe IV SCH (21:33)
[2020-08-24] MEDS: Decadron 4 MG INJ IV SCH (21:37)
[2020-08-24] MEDS: Lopressor 50 MG PO SCH (21:37)
[2020-08-24] MEDS: ELIQUIS 2.5 MG TABLET PO SCH (21:37)
[2020-08-24] MEDS: Protonix 40MG Tablet PO SCH (21:37)
[2020-08-24] MEDS ORDERED: NON-FORMULARY ITEM (Omeprazole 20 Mg [Prilosec 20 Mg] 20 MG) PO SCH (22:00)
[2020-08-24] MEDS ORDERED: TYLENOL 325 MG PO PRN (22:08)
[2020-08-25] MEDS: Cardizem CD 120 MG PO SCH ×2 (04:29→07:28)
[2020-08-25] MEDS: Sodium Chloride 0.9% 10 ML FLUSH Syringe IV SCH (04:30)
[2020-08-25 08:45] LABS: INR 1.57 (0.8-3.0); PROTIME 17.8 SECONDS (9.95-12.35)
[2020-08-25] MEDS: SYNTHROID 125 MCG PO SCH (10:19)
[2020-08-25] MEDS: ELIQUIS 2.5 MG TABLET PO SCH (10:19)
[2020-08-25] MEDS: Lopressor 50 MG PO SCH (10:19)
[2020-08-25] MEDS: Klor Con 10 MEQ PO SCH (10:19)
[2020-08-25] MEDS: Glucophage 500 MG PO SCH (10:19)
[2020-08-25] MEDS: Zestril 10 MG PO SCH (10:19)
[2020-08-25] MEDS: Decadron 4 MG INJ IV SCH (10:19)
[2020-08-25] MEDS: Zocor 10MG PO SCH (10:19)
[2020-08-25] MEDS: Protonix 40MG Tablet PO SCH (10:19)
[2020-08-25] MEDS: Lasix 40 MG PO SCH (10:19)
[2020-08-25] MEDS: Lanoxin 0.125MG TABLET PO SCH (10:27)
[2020-08-25] MEDS ORDERED: Lanoxin 0.125MG TABLET PO SCH (12:00)
[2020-08-25 14:13] LABS: ALBUMIN 3.4 g/dL (3.5-5.0); ALKALINE PHOSPHATASE 73 U/L (38-126); ANION GAP 13.7 MEQ/L (5-15); BLOOD UREA NITROGEN 21 mg/dL (7-17); CHLORIDE 104 mmol/L (98-107); Calcium 7.8 mg/dL (8.4-10.2); Carbon Dioxide 20 mmol/L (22-30); Creatinine 1 0.83 mg/dL (0.52-1.04); EST GLOMERULAR FILTRATION RATE > 60.0 ML/MIN; Glucose 181 mg/dL (74-106); Potassium 4.1 mmol/L (3.5-5.1); SGOT/AST 47 U/L (14-36); SGPT/ALT 19 U/L (0-35); SODIUM 134 mmol/L (137-145); Total Protein 6.8 g/dL (6.3-8.2)
[2020-08-25 14:48] LABS: Basophil (Absolute #) 0.02 (0-0.4); Eosinophil (Absolute #) 0 (0-0.5); Hematocrit 36.1 % (35-47); Hemoglobin 10.8 gm/dl (12.0-16.0); Lymphocyte (Absolute #) 0.27 (1.0-4.6); Lymphocytes % 40.3 % (24.0-44.0); Mean Cell Volume 91.4 fl (78-100); Mean Corpuscular Hemoglobin 27.3 pg (26-32); Mean Corpuscular Hgb Concent. 29.9 g/dl (32-36); Mean Platelet Volume 12.3 fl (7.5-11.0); Monocyte (Absolute #) 0.08 (0.0-1.3); Monocytes % 11.9 % (0.0-12.0); Neutrophil % 44.8 % (36.0-66.0); Platelet Count 122 K/mm3 (150-450); Red Blood Count 3.95 M/mm3 (4.1-5.4); Red Cell Distribution Width 19.1 % (11.5-14.0)
[2020-08-25 15:00] LABS: White Blood Count 0.7 K/mm3 (4.0-10.5)
[2020-08-25 15:43] LABS: A-aADO2 611; ABG HEMOGLOBIN 10.5; ABG POTASSIUM 4.3 (3.5-5.1); ABG SITE RIGHT BRACHIAL; ARTERIAL BLD GAS O2 SATURATION 91.7 % (95-100); ARTERIAL BLOOD GAS BASE EXCESS -5.2 (-2.0-2.0); ARTERIAL BLOOD GAS FIO2 100 %; ARTERIAL BLOOD GAS PCO2 32 mmHg (35-45); ARTERIAL BLOOD GAS PO2 62 mmHg (75-100); ARTERIAL BLOOD GAS pH 7.38 (7.35-7.45); CARBOXYHEMOGLOBIN 1.4 % THgb (0.0-6.9); HCO3- 18.9 (22-28); HGB O2 SAT 89.6 g/dF (94-100); Methhemoglobin 0.8 % (1.4-1.5); paO2 pAO1 0.09
[2020-08-25 16:22] VITALS: BP 114/59
[2020-08-25] MEDS ORDERED: Lasix 20 MG/2 ML IV ONE (16:43)
[2020-08-25] MEDS ORDERED: REMDESIVIR 100 MG in Sodium Chloride 0.9% 100 ML IVPB 100 ML IV SCH (17:00)
[2020-08-25 17:50] VITALS: PULSE 70; O2SAT 92
[2020-08-26] MEDS ORDERED: Lanoxin 0.125MG TABLET PO SCH ×2 (10:00)
--- NOTE | 2020-08-26 10:13 | SSS ---
DIAGNOSIS: 1. COVID-19 PNEUMONIA. 2. COVID-19 GASTROENTERITIS. 3. RAPID ATRIAL FIBRILLATION. 4. SYNCOPE. 5. VOMITING AND DIARRHEA. 6. HISTORY OF CONGESTIVE HEART FAILURE. 7. HISTORY OF HYPERTENSION. 8. HYPOTHYROIDISM. 9. HYPERLIPIDEMIA. HISTORY OF PRESENT ILLNESS: Patient presented to the Emergency Room on 08/24/2020 and was admitted that afternoon with the above. She was tested positive I believe on 08/20/2020. Her also had it, but he is doing okay. She started feeling worse over the last 4 days and today, she passed out. She has been taking medicine as prescribed by her doctor, Jazmin Prieto, her family doctor. In the Emergency Room, she was found to be in rapid atrial fibrillation, 140, and was admitted for all of the above. CURRENT MEDICATIONS: Aspirin 81 q d, Synthroid 1.25 q d, Lopressor 25 q d, Prilosec 20 q d, Fosamax 70 q d, Norvasc 5 q d, Eliquis 2.5 bid, digoxin 1.25 mcg q d, Lasix 40 q d, Lisinopril 10 q d, metformin 500 bid, KCl 10 q d, and simvastatin 20. ALLERGIES: KEFLEX, LEVAQUIN, PREDNISONE. REVIEW OF SYSTEMS: CONSTITUTIONAL: Weakness, no fever, no chills for the last 4 days. HEENT: Says she can taste, but she is nauseated and not eating. RESPIRATORY: Has been more short of breath at rest and on exertion. CARDIAC: History of syncope probably due to atrial fibrillation we think. She has had atrial fibrillation off and on for years. She says she has had it chronically and is anticoagulated and takes medicine to control the rate. Dr. Andersen is her sales closer. Coronary artery disease supposedly. She doesn't say she has had a cath. High cholesterol, hypertension, and atrial fibrillation for many years which is intermittent. ABDOMEN/GASTROINTESTINAL: Nauseated, some diarrhea. No vomiting. GENITOURINARY: No symptoms. NEURO: CT scan showed a lunar infarct, but she has not had any known stroke to herself and hasn't noted any particular problems. PSYCH: No problems. ENDOCRINE: Hypothyroidism, hypertension. EXTREMITIES: SOCIAL HISTORY: The patient does not smoke. Lives with her . Doesn't drink. Has chronic problems, but lives alone without difficulty. As stated, she has never smoked, never used illicit drugs. Lives in [place], [place], the village of. PAST SURGICAL HISTORY: Appendectomy, cholecystectomy, colonoscope with polyps. PHYSICAL EXAMINATION: This afternoon, the patient is looking pale, short of breath, and anxious. Temperature is 98, pulse 130, respirations 30, BP 110/70, O2 sat is 90 on 15 liters and 50%. HEENT: Seems to hear and see fairly well. CHEST: Bilateral rales. CVS: Irregular rate at 70. Slow irregular pulse. ABDOMEN: Slightly tender all over. No bowel sounds. EXTREMITIES: Warm, dry, pale. Chest x-ray - Bilateral infiltrates typical for COVID-19. CT of the head shows a small lacunar infarct which is old. CT of the chest was not done because she got a CT of her head, part of that, and I don't think it would be diagnostic. Her d-dimer was elevated at like 700 on admission. The next day, it is up to like 1600. Her WBC initially was 1200. However, it has gone down to 700 this afternoon. D-dimer is going up and she is increasingly short of breath. Her atrial fibrillation is well controlled. In fact, we backed off the Cardizem due to some bradycardia. Her d-dimer has elevated slightly to 1500 and so we are going to give her 20 of Lasix IV and put in a Manuel. IMPRESSION: 1. RESPIRATORY FAILURE DUE TO COVID-19 PNEUMONIA. 2. ATRIAL FIBRILLATION, CHRONIC. 3. DIABETES MELLITUS, WELL CONTROLLED IN THE PAST SUPPOSEDLY. 4. HYPOTHYROIDISM. PLAN: Initially, the patient seemed to be fairly stable on the evening I admitted her. However, on the afternoon of the , she is just spirally downhill rapidly. Her WBC is 700. Her d-dimer has gone up to 1600. Her NT Pro BNP is 1570. Overall, it looks like she is having very rapid progression of her COVID-19. We are going to seek to transfer her to somewhere with a rn outpatient surgery and more intense therapy. Have been in contact and [facility] has agreed to do so. Dr. Marquez, is the hospitalist I talked to.
[2020-08-26] MEDS ORDERED: Lasix 20 MG/2 ML IV ONE (16:43)
[2020-08-30] MEDS ORDERED: Fosamax 70 MG PO SCH (06:00)
== END 2020-08-25 18:00 | disposition home or self-care (01) | DRG 177 ==
LOC: ED 09:23 → MED SURG 12:00 → OBSVTOIN 18:57
PROVIDERS: ADMIT Family Medicine; ATTEND Family Medicine
DX: U07.1 COVID-19 (principal); J12.89 Other viral pneumonia; J96.90 Respiratory failure, unspecified, unspecified whether with hypoxia or hypercapnia; A08.39 Other viral enteritis; R55 Syncope and collapse; R11.2 Nausea with vomiting, unspecified; E11.9 Type 2 diabetes mellitus without complications; I48.91 Unspecified atrial fibrillation; Z79.01 Long term (current) use of anticoagulants; Z79.899 Other long term (current) drug therapy; R51.9 Headache, unspecified; I10 Essential (primary) hypertension; E78.00 Pure hypercholesterolemia, unspecified; I25.10 Atherosclerotic heart disease of native coronary artery without angina pectoris; E03.9 Hypothyroidism, unspecified; E78.5 Hyperlipidemia, unspecified
CPT/HCPCS: 36000; 36415; 36600; 70450; 71045; 80053; 80162; 82375; 82803; 82947; 83735; 83880; 84484; 85025; 85379; 85610; 93005; 93041; 93268; 94760; 94762; 96365; 96374; 99285; J1100; J1940; A9270-GY

== ENCOUNTER 2024-10-26 06:45 | Emergency (ER) | payer MEDICARE, OTHER ==
[2024-10-26 07:15] VITALS: TEMP 96.6
--- NOTE | 2024-10-26 07:27 | ERPHSYRPT ---
- History of Present Illness Time Seen by Provider: 10/26/24 07:10 Source: patient, family Exam Limitations: no limitations Patient Subjective Stated Complaint: c/o fall Triage Nursing Assessment: patient brought to ED by with c/o fall around 0530. patient stated that she has been feeling lightheaded and fell in bathroom at home. patient has 7/10 pain in her left shoulder and 4/10 facial pain. patient stated that she hit her face on the floor. Patient has bruising present on the left bicep, left shoulder deformity noted, patient denies LOC, sugar was 177 per out glucometer. skin w/n/d, hypertensive, brought in my walker, limited ROM of left upper extremity. Physician History: This is a 79-year-old white female patient that arrives by private vehicle accompanied by her spouse who has a history of atrial fibrillation, is on Eliquis, digoxin and has a watchman in place. She is here this morning seconda ry to a fall that occurred in the bathroom and has a complaint of left shoulder pain. She did hit her head and face per her report but no loss of consciousness. She states that she does feel a little lightheaded. Patient has a history of diabetes, hypertension, hyperlipidemia and hypothyroidism as well. She denies chest pain and she denies shortness of breath. Occurred: just prior to arrival Reason for Fall: slipped Injuries/Pain Location: head, face, upper extremity (Left shoulder) Loss of Consciousness: no loss of consciousness Quality: aching Severity of Pain-Max: moderate Associated Symptoms (Fall): extremity injury (Left shoulder), lightheadedness, No neck pain, No shortness of breath Allergies/Adverse Reactions: acetaminophen [From Darvocet-N] Allergy (Verified 10/26/24 07:48) cephalexin [From Keflex] Allergy (Verified 10/26/24 07:48) levofloxacin [From Levaquin] Allergy (Verified 10/26/24 07:48) prednisone Allergy (Verified 10/26/24 07:48) propoxyphene [From Darvon] Allergy (Verified 10/26/24 07:48) Home Medications: Aspirin 81 mg PO DAILY 09/17/16 [History] Levothyroxine Sodium [Synthroid] 100 mcg PO DAILY 09/17/16 [History] Metoprolol Tartrate 25 mg [Lopressor 25MG Tab] 100 mg PO BID 09/17/16 [History] Omeprazole 20 MG [Prilosec 20 mg] 40 mg PO HS 09/17/16 [History] Alendronate Sodium 70 mg [Fosamax 70 MG] 70 mg PO WEEKLY 08/24/20 [History] Amlodipine Besylate 5 mg PO DAILY 08/24/20 [History] Digoxin 125 mcg PO DAILY 08/24/20 [History] Furosemide 40 mg [Lasix 40 MG] 40 mg PO BID 08/24/20 [History] Lisinopril 10 mg [Zestril 10 MG] 10 mg PO BID 08/24/20 [History] Metformin HCl 500 mg [Glucophage 500 MG] 1,000 mg PO DAILY 08/24/20 [History] Potassium Chloride 10 meq PO DAILY 08/24/20 [History] Simvastatin 20Mg [Zocor 20Mg] 20 mg PO HS 08/24/20 [History] Acetaminophen/Diphenhydramine [Tylenol Pm Ex-Strength Caplet] 1 each PO HSPRN PRN 10/26/24 [History] Albuterol Common Canister [Ventolin Common Canister] 2 puff IH Q6H 10/26/24 [History] Calcium Carbonate/Vitamin D3 [Calcium 250-Vit D3 125 Tablet] 1 each PO DAILY 10/26/24 [History] Clopidogrel Bisulfate [Clopidogrel] 75 mg PO DAILY 10/26/24 [History] HydrALAzine HCL 25 MG TAB [Apresoline 25 MG TABLET] 25 mg PO BID 10/26/24 [History] [place]-3 Fatty Acids/Fish Oil [Fish Oil 1,000 mg Capsule] 2,000 mg PO DAILY 10/26/24 [History] Sitagliptin Phosphate 50 MG [Januvia 50 MG] 50 mg PO DAILY 10/26/24 [History] Umeclidinium Brm/Vilanterol Tr [Anoro Ellipta 62.5-25 Mcg INH] 1 each IH DAILY 10/26/24 [History] Hx Tetanus, Diphtheria Vaccination/Date Given: Yes Hx Influenza Vaccination/Date Given: No Hx Pneumococcal Vaccination/Date Given: No Travel Risk - International Travel Have you traveled outside of the country in past 3 weeks: No - Emerging Infectious Disease Are you exhibiting symptoms associated with any current EIDs: No - Review of Systems Constitutional: No Symptoms Eyes: No Symptoms Ears, Nose, & Throat: No Symptoms Respiratory: No Symptoms Cardiac: No Symptoms Abdominal/Gastrointestinal: No Symptoms Genitourinary Symptoms: No Symptoms Musculoskeletal: Deformity (Left shoulder), Fall, Injury (Left shoulder) Skin: No Symptoms Neurological: No Symptoms Psychological: No Symptoms Endocrine: No Symptoms Hematologic/Lymphatic: No Symptoms Immunological/Allergic: No Symptoms All Other Systems: Reviewed and Negative - Past Medical History Pertinent Past Medical History: Yes Neurological History: No Pertinent History ENT History: Cataracts Cardiac History: No Pertinent History Respiratory History: No Pertinent History Endocrine Medical History: Diabetes Type II, Hypothyroidism Musculoskeletal History: Fractures, Other GI Medical History: Polyps History: No Pertinent History Psycho-Social History: No Pertinent History Female Reproductive Disorders: Menstrual Problems Other Medical History: bone spurs in back, herniated disks, - Past Surgical History Past Surgical History: Yes Neuro Surgical History: No Pertinent History Cardiac: No Pertinent History, Cardiac Stent Respiratory: No Pertinent History Gastrointestinal: Cholecystectomy, Hernia Repair Genitourinary: No Pertinent History Musculoskeletal: Other Female Surgical History: Hysterectomy Other Surgical History: Pt had R knee and R foot surgeries, 3 back surgeries, Valve repair, watchman - Social History Smoking Status: Former smoker Exposure to second hand smoke: No Drug Use: none - Social Determinants of Health Will the patient participate in the screening: Yes Do you worry about a steady place to live?: No Do you have any problems with any of the following?: No known problems In the past 12 months,have you had to go without utilities?: No Transportation Issues: No Has anyone in your support network made you feel unsafe?: No Have you or anyone in your house had to go w/o enough food: No - Nursing Vital Signs Nursing Vital Signs: Initial Vital Signs Temperature 96.6 F 10/26/24 07:02 Pulse Rate 76 10/26/24 07:02 Respiratory Rate 18 10/26/24 07:02 Blood Pressure 191/91 10/26/24 07:02 O2 Sat by Pulse Oximetry 95 10/26/24 07:02 Pain Scale Pain Intensity 9 - Josie Coma Score Best Eye Response (Hanna): (4) open spontaneously Best Verbal Response (Hanna): (5) oriented Best Motor Response (Josie): (6) obeys commands Hanna Total: 15 - Physical Exam General Appearance: no apparent distress, alert, anxiety Head Injury: no evidence of injury Eye Exam: PERRL/EOMI, eyes nml inspection ENT Exam: airway nml, nml ext.inspection Neck Exam: supple, trachea midline, full range of motion, normal alignment, normal inspection Respiratory/Chest Exam: normal breath sounds, No chest tenderness, No respiratory distress, No ecchymosis, No crepitus Cardiovascular Exam: normal heart sounds, regular rate/rhythm Gastrointestinal Exam: soft, normal bowel sounds, No tenderness Rectal Exam: not done Back Exam: normal inspection, normal range of motion, No CVA tenderness, No vertebral tenderness Extremity Exam: pelvis stable, deformities (# Left shoulder), bony point t enderness (Left shoulder), evidence of injury (Left shoulder) Neurologic Exam: alert, oriented x 3, cooperative, dag coater II-XII nml as tested, nml cerebellar function, nml station & gait, sensation nml Skin Exam: normal color, warm, dry SpO2 Interpretation: normal SpO2: 95 O2 Delivery: Room Air - Course Nursing assessment & vital signs reviewed: Yes Ordered Tests: Active Orders 24 hr Category Date Time Status EKG-ER Only STAT Care 10/26/24 07:27 Active IV Insertion STAT Care 10/26/24 07:27 Active FACIAL BONES WO CONTRAST [CT] Stat Exams 10/26/24 07:27 Completed HEAD WITHOUT CONTRAST [CT] Stat Exams 10/26/24 07:27 Completed HUMERUS Stat Exams 10/26/24 07:28 Taken SHOULDER Stat Exams 10/26/24 07:28 Taken CBC W DIFF Stat Lab 10/26/24 08:00 Completed CMP Stat Lab 10/26/24 08:00 Completed POCT GLUCOSE Stat Lab 10/26/24 07:01 Completed PROTIME WITH INR Stat Lab 10/26/24 08:52 Completed Medication Summary Discontinued Medications Generic Name Dose Route Start Last Admin Trade Name Freq PRN Reason Stop Dose Admin Morphine Sulfate 2 mg 10/26/24 07:48 10/26/24 07:52 Morphine Sulfate 2 Mg/Ml Inj IV 10/26/24 07:49 2 mg STAT ONE Administration Morphine Sulfate Confirm 10/26/24 07:50 Morphine Sulfate 2 Mg/Ml Inj Administered 10/26/24 07:51 Dose 2 mg .ROUTE .STK-MED ONE Morphine Sulfate 2 mg 10/26/24 09:40 10/26/24 10:21 Morphine Sulfate 2 Mg/Ml Inj IV 10/26/24 09:41 2 mg STAT ONE Administration Morphine Sulfate Confirm 10/26/24 10:20 Morphine Sulfate 2 Mg/Ml Inj Administered 10/26/24 10:21 Dose 2 mg .ROUTE .STK-MED ONE Ondansetron HCl 4 mg 10/26/24 07:48 10/26/24 07:52 Ondansetron Hcl 4 Mg/2 Ml Vial IV 10/26/24 07:49 4 mg STAT ONE Administration Ondansetron HCl Confirm 10/26/24 07:50 Ondansetron Hcl 4 Mg/2 Ml Vial Administered 10/26/24 07:51 Dose 4 mg .ROUTE .STK-MED ONE Lab/Rad Data: Laboratory Result Diagrams 10/26/24 08:00 10/26/24 08:00 Laboratory Results 10/26/24 10/26/24 10/26/24 Range/Units 08:52 08:00 08:00 WBC (3.98-10.04) x10^3/uL RBC (3.93-5.22) x10^6/uL Hgb (11.2-15.7) g/dL Hct (34.1-44.9) % MCV (79.4-94.8) fL MCH (25.6-32.2) pg MCHC (32.2-35.5) g/dL RDW (11.7-14.4) % Plt Count (182-369) x10^3/uL MPV (9.4-12.3) fL Gran % (34.0-71.1) % Immature Gran % (Auto) (0.001-0.429) % Nucleat RBC Rel Count (0.00-0.2) % Eos # (Auto) (0.04-0.36) x10^3/uL Immature Gran # (Auto) (0.001-0.031) x10^3u/L Absolute Lymphs (auto) (1.18-3.74) x10^3/uL Absolute Monos (auto) (0.24-0.86) x10^3/uL Absolute Nucleated RBC (0.00-0.012) x10^3u/L Lymphocytes % (19.3-51.7) % Monocytes % (4.7-12.5) % Eosinophils % (0.7-5.8) % Basophils % (0.1-1.2) % Absolute Granulocytes (1.56-6.13) x10^3/uL Basophils # (0.01-0.08) x10^3/uL PT 10.8 (9.4-12.5) SECONDS INR 0.99 (0.8-3.0) Sodium 139 (135-145) mmol/L Potassium 4.0 (3.5-5.1) mmol/L Chloride 101 (98-107) mmol/L Carbon Dioxide 24 (22-30) mmol/L Anion Gap 17.5 H (5-15) MEQ/L BUN 26 H (7-17) mg/dL Creatinine 1.04 (0.52-1.04) mg/dL Estimated GFR 55.4 ML/MIN Glucose 190 H (74-106) mg/dL POC Glucometer (74 to 106) mg/dL Calcium 9.4 (8.4-10.2) mg/dL Total Bilirubin 1.10 (0.2-1.3) mg/dL AST 29 (14-36) U/L ALT 20 (0-35) U/L Alkaline Phosphatase 130 H (38-126) U/L Serum Total Protein 7.4 (6.3-8.2) g/dL Albumin 4.3 (3.5-5.0) g/dL Digoxin 0.8 (0.8-1.9) ng/mL 10/26/24 10/26/24 Range/Units 08:00 07:01 WBC 14.0 H (3.98-10.04) x10^3/uL RBC 4.21 (3.93-5.22) x10^6/uL Hgb 11.6 (11.2-15.7) g/dL Hct 38.2 (34.1-44.9) % MCV 90.7 (79.4-94.8) fL MCH 27.6 (25.6-32.2) pg MCHC 30.4 L (32.2-35.5) g/dL RDW 16.3 H (11.7-14.4) % Plt Count 210 (182-369) x10^3/uL MPV 11.5 (9.4-12.3) fL Gran % 88.8 H (34.0-71.1) % Immature Gran % (Auto) 0.5 H (0.001-0.429) % Nucleat RBC Rel Count 0.0 (0.00-0.2) % Eos # (Auto) 0.11 (0.04-0.36) x10^3/uL Immature Gran # (Auto) 0.07 H (0.001-0.031) x10^3u/L Absolute Lymphs (auto) 0.67 L (1.18-3.74) x10^3/uL Absolute Monos (auto) 0.64 (0.24-0.86) x10^3/uL Absolute Nucleated RBC 0.00 (0.00-0.012) x10^3u/L Lymphocytes % 4.8 L (19.3-51.7) % Monocytes % 4.6 L (4.7-12.5) % Eosinophils % 0.8 (0.7-5.8) % Basophils % 0.5 (0.1-1.2) % Absolute Granulocytes 12.44 H (1.56-6.13) x10^3/uL Basophils # 0.07 (0.01-0.08) x10^3/uL PT (9.4-12.5) SECONDS INR (0.8-3.0) Sodium (135-145) mmol/L Potassium (3.5-5.1) mmol/L Chloride (98-107) mmol/L Carbon Dioxide (22-30) mmol/L Anion Gap (5-15) MEQ/L BUN (7-17) mg/dL Creatinine (0.52-1.04) mg/dL Estimated GFR ML/MIN Glucose (74-106) mg/dL POC Glucometer 177 H (74 to 106) mg/dL Calcium (8.4-10.2) mg/dL Total Bilirubin (0.2-1.3) mg/dL AST (14-36) U/L ALT (0-35) U/L Alkaline Phosphatase (38-126) U/L Serum Total Protein (6.3-8.2) g/dL Albumin (3.5-5.0) g/dL Digoxin (0.8-1.9) ng/mL - Progress Progress: improved, pain not gone completely Progress Note: 10/26/24 08:04 My medical decision making and the assignment of at least moderate complexity is based on review of the patient's past medical history, review the patient's medication list, reviewed patient drug allergy list, history present illness and physical findings on examination. The workup in this patient includes placement of intravenous line, infusion of morphine, infusion of Zofran, CBC, CMP, PT/INR, twelve-lead EKG, CT scan of the head and face, x-ray of the patient's left shoulder and left humerus. Differential diagnosis includes but is not limited to fracture dislocation left humerus, left shoulder. Acute intracranial abnormality, facial fractures, abnormal electrolytes, arrhythmia 10/26/24 09:41 I interpreted the patient's laboratory data results. Based on the laboratory data results, there are no acute, emergent medical issues. I interpreted the patient's preliminary left shoulder x-ray. There is a left humeral neck fracture with minimal displacement and override. I interpreted the patient's preliminary left humerus x-ray. There is left humeral neck fracture with minimal displacement and override. I spoke with orthopedic surgeon Dr. aCba. He reviewed the plain films and stated that this patient may be placed in a sling and sent home to follow-up at the orthopedic clinic on 10/28/2024. He, based on his initial impression, thinks that this patient may heal without surgical intervention. 10/26/24 09:[address] scan of the head without contrast was interpreted by the radiologist and I reviewed the impression. The impression states no acute brain injury or skull fracture. There is stable diffuse brain atrophic changes associated with aging. There is stable diffuse chronic microvascular ischemic disease. 10/26/24 10:[address] scan of the facial bones without contrast was interpreted by the radiologist and I reviewed the impression. The impression states no acute fracture. There is a deviated nasal septum which is stable when compared to prior similar study. Counseled pt/family regarding: lab results, diagnosis, need for follow-up, rad results Medical Desision Making - Independent Historian Additional History obtained from: Spouse - Diagnostic Testing Diagnostic test were ordered, analyzed, and reviewed by me: Yes Radiological Interpretation: Interpreted by me, Reviewed by me, Teleradiologist Report - Risk of complications The pt has a mod risk of morbidity or mortality based on: Need for prescription drug management - Departure Departure Disposition: Home Clinical Impression: Fracture of neck of left humerus Condition: Stable Critical Care Time: No Referrals: GABBY VENEGAS [Primary Care Provider] - Follow up/PCP as directed DOMINIK CABA MD [ACTIVE STAFF] - Follow up/PCP as directed Instructions: Upper Arm Fracture ED Additional Instructions: Ice pack to tender area 3 times a day for the next 3 days. May use your usual Tylenol p.m. medication if this is helpful. Otherwise, take the Percocet 5/325 medication. Do not use both of those medications. Keep your left upper extremity in a sling for comfort. Follow-up at the [facility] orthopedic clinic on Monday morning, 10/28/2024 at 8 AM for further evaluation and management. Prescriptions: Oxycodone HCl/Acetaminophen [Percocet 5-325 mg Tablet] 1 each PO Q8H PRN PRN #9 tablet MDD 3 PRN Reason: Moderate To Severe Pain
[2024-10-26] MEDS ORDERED: MORPHINE SULFATE 2 MG INJ ONE ×2 (07:50→10:20)
[2024-10-26] MEDS ORDERED: Zofran 4 MG/2 ML VIAL ONE (07:50)
[2024-10-26] MEDS: MORPHINE SULFATE 2 MG INJ IV ONE ×2 (07:52→10:21)
[2024-10-26] MEDS: Zofran 4 MG/2 ML VIAL IV ONE (07:52)
[2024-10-26 08:07] LABS: Absolute Neutrophil Ct (ANC) 12.44 x10^3/uL (1.56-6.13); BASOPHIL % 0.5 % (0.1-1.2); Basophil (Absolute #) 0.07 x10^3/uL (0.01-0.08); Eosinophil % 0.8 % (0.7-5.8); Eosinophil (Absolute #) 0.11 x10^3/uL (0.04-0.36); Hematocrit 38.2 % (34.1-44.9); Hemoglobin 11.6 g/dL (11.2-15.7); IMMATURE GRAN # 0.07 x10^3u/L (0.001-0.031); IMMATURE GRAN % 0.5 % (0.001-0.429); Lymphocyte (Absolute #) 0.67 x10^3/uL (1.18-3.74); Lymphocytes % 4.8 % (19.3-51.7); Mean Cell Volume 90.7 fL (79.4-94.8); Mean Corpuscular Hemoglobin 27.6 pg (25.6-32.2); Mean Corpuscular Hgb Concent. 30.4 g/dL (32.2-35.5); Mean Platelet Volume 11.5 fL (9.4-12.3); Monocyte (Absolute #) 0.64 x10^3/uL (0.24-0.86); Monocytes % 4.6 % (4.7-12.5); Neutrophil % 88.8 % (34.0-71.1); Platelet Count 210 x10^3/uL (182-369); Red Blood Count 4.21 x10^6/uL (3.93-5.22); Red Cell Distribution Width 16.3 % (11.7-14.4)
[2024-10-26 08:24] LABS: ALBUMIN 4.3 g/dL (3.5-5.0); ANION GAP 17.5 MEQ/L (5-15); BILIRUBIN,TOTAL 1.1 mg/dL (0.2-1.3); Calcium 9.4 mg/dL (8.4-10.2); Creatinine 1 1.04 mg/dL (0.52-1.04); EST GLOMERULAR FILTRATION RATE 55.4 ML/MIN; Total Protein 7.4 g/dL (6.3-8.2)
[2024-10-26 09:07] LABS: INR 0.99 (0.8-3.0); PROTIME 10.8 SECONDS (9.4-12.5)
--- NOTE | 2024-10-26 09:19 | XRAY ---
CLINICAL HISTORY: Fall injury COMPARISON: CT Head dated 08/24/2020 TECHNIQUE: An axial non-contrast CT scan of the brain was performed from the skull base to the high parietal region. One of the following dose reduction techniques was utilized for this exam: Automated exposure control, adjustment of the mA and/or kV according to patient size, and use of iterative reconstruction. FINDINGS: Brain Parenchyma: Normal attenuation of the cerebral hemispheres, cerebellum, and brainstem. No evidence of acute infarct, hemorrhage, or mass effect. No abnormal areas of hypo- or hyperattenuation. Ventricular System: Mild dilatation of the ventricular system, with diffuse periventricular hypodensity, likely due to diffuse ischemic changes. Subarachnoid Spaces: Increased extra-axial subarachnoid spaces with prominent gyri and deep sulci of the brain, prominent cerebellar folia, basal cisterns, and Benjamin fissures. No evidence of subarachnoid hemorrhage or extra-axial fluid collections. Cerebellum and Brainstem: Normal size and signal. No masses, lesions, or areas of abnormal signal. Orbits: Normal appearance of the globes, optic nerves, and extraocular muscles. No evidence of orbital masses or abnormal signals. Sinuses: Clear paranasal sinuses. No evidence of sinusitis or mucosal thickening. 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 Mastoid Air Cells: Clear mastoid air cells. No evidence of mastoiditis. Skull: Normal skull morphology. Redemonstration of prominent left nasal sutures without interval change IMPRESSION: Compared to the last CT, the current study shows: 1. No acute brain injury or skull fractures. (stable) 2. Diffuse Brain Atrophic changes due to aging. (stable) 3. Diffuse chronic microvascular ischemic disease. (stable) Electronically Signed by: Brock Luciano MD. (10/26/2024 09:15:24 EST)
[2024-10-26 09:49] VITALS: O2SAT 95
--- NOTE | 2024-10-26 10:25 | XRAY ---
CLINICAL HISTORY: Fall injury COMPARISON: CT Head without contrast dated 08/24/2020. TECHNIQUE: A CT scan of the maxillofacial region was performed without the administration of intravenous contrast. Contiguous axial images were obtained from the skull base to the mandible. Coronal and sagittal reformatted images were also reviewed. One of the following dose-reduction techniques was utilized for this exam. Automated exposure control, adjustment of the mA and/or kV according to patient size, and use of iterative reconstruction. DLP: 1733.55 mGy-cm, CTDI: 90.9 mGy. FINDINGS: Bones: Maxilla: The maxillary bones are intact without evidence of acute fracture, lytic or sclerotic lesions. No signs of maxillary sinus wall fractures. Mandible: The mandibular bone is intact with normal cortices and trabecular patterns. There is no evidence of fracture, osteomyelitis, or neoplastic lesion. Zygomatic Bones: The zygomatic arches are intact bilaterally without evidence of fracture or deformity. Nasal Bones: The nasal bones are intact with no signs of fracture or displacement. Orbital Shell: The orbital shell are intact with no evidence of fracture or bony erosion. Orbits: The orbits are normal in size and shape. The globes are symmetric and well-positioned with no evidence of proptosis. The extraocular muscles appear normal in size and symmetry. The optic nerves are normal in caliber and course with no signs of compression or lesion. No retro-orbital masses or abnormal fluid collections are observed. Nasal Cavity and Paranasal Sinuses: Deviated nasal septum to the left side with spur formation. Bilateral chonca bullosa. Frontal Sinuses: The frontal sinuses are well-pneumatized and free of fluid or soft tissue masses. Ethmoid Sinuses: The ethmoid air cells are clear with no mucosal thickening or fluid levels. Maxillary Sinuses: The maxillary sinuses are well-pneumatized with no fluid levels, mucosal thickening, or masses. Sphenoid Sinuses: The sphenoid sinuses are clear with no abnormalities noted. Temporomandibular Joints (TMJ): The TMJs are symmetric and normal in appearance. The mandibular condyles are well-positioned within the glenoid fossae. There are no signs of dislocation, subluxation, or degenerative changes. The articular eminences are normal in contour. Soft Tissues: The soft tissues of the face, including the cheeks, lips, and submandibular regions, appear unremarkable. There are no masses, cysts, or abnormal fluid collections. The parotid and submandibular glands are normal in size and appearance without focal lesions. Additional Findings: There are no additional abnormal findings in the visualized soft tissue structures or bony elements. No signs of osteomyelitis or other infectious processes. IMPRESSION: Compared to the last CT Head, the current study shows: 1. No evidence of acute fracture. (stable). 2. Deviated nasal septum to the left side with spur formation. (stable). 3. Bilateral chonca bullosa. (stable). Electronically Signed by: Brock Luciano MD. (10/26/2024 10:20:20 EST)
[2024-10-26 10:41] VITALS: BP 121/77; PULSE 76; RESP 18
--- NOTE | 2024-10-26 21:01 | XRAY ---
Indication: Status post fall. Comparison: None 2 view left humerus demonstrates mildly displaced/angulated humeral neck fracture. Elsewhere osteopenia and mild AC degenerative changes. No other bony, articular, or soft tissue abnormalities.
--- NOTE | 2024-10-26 21:01 | XRAY ---
Indication: Status post fall. Comparison: None 3 view left shoulder demonstrates mildly displaced/angulated humeral neck fracture. Elsewhere osteopenia, mild AC degenerative changes, mild multilevel cervical thoracic degenerative spondylosis, left lung interstitial opacities, tortuous arteriosclerotic aorta, and cardiac metallic valve/stent.
== END 2024-10-26 10:48 | disposition home or self-care (01) ==
LOC: ED 06:45
DX: S42.212A Unspecified displaced fracture of surgical neck of left humerus, initial encounter for closed fracture (principal); W18.30XA Fall on same level, unspecified, initial encounter; Y92.002 Bathroom of unspecified non-institutional (private) residence as the place of occurrence of the external cause; R42 Dizziness and giddiness; E11.9 Type 2 diabetes mellitus without complications; I10 Essential (primary) hypertension; E78.5 Hyperlipidemia, unspecified; Z79.891 Long term (current) use of opiate analgesic; Z79.84 Long term (current) use of oral hypoglycemic drugs; Z79.02 Long term (current) use of antithrombotics/antiplatelets; Z79.899 Other long term (current) drug therapy
CPT/HCPCS: 36415; 70450; 70486; 73030; 73060; 80053; 80162; 82947; 85025; 85610; 93005; 96374; 96375; 96376; 99285; J2270; J2405